=== PATIENT | male | born 1955 | race Caucasian/White ===

== ENCOUNTER 2021-03-07 11:04 | Emergency (ER) | payer BC ==
[~2021-03-07] VITALS: Ht 180 cm; Wt 105.0 kg
--- NOTE | 2021-03-07 11:52 | ED Syncope ---
General Chief Complaint: Dizziness/Syncope Stated Complaint: DIZZINESS,HTN Nursing Triage Note: PT REPORTS TO ED FOR C/O DIZZINESS THIS MORNING AROUND 0700. PT STATES HE WAS IN BED AND GOT UP WHEN HE FELT THIS WAY. PT DID TAKE BP AT HOME AND IT WAS HIGH WELL HEART RATE. AROUND 0830 BP 175/97 AND HR 111, 0953 BP 170/90 AND HR 96, AND 1040 BP 141/88 AND HR 102. PT AMB. TO ROOM 04 WITHOUT DIFFICULTY. PT WAS UNABLE TO SEE PCP TABBY CHAVARRIA. Source of Information: Patient Exam Limitations: No Limitations (KATYA ROSE APRN) History of Present Illness Date Seen by Provider: Mar 07, 2021 Time Seen by Provider: 11:50 Initial Comments To ER with dizziness onset this morning. Started when he got up out of bed. He took his blood pressure at home and found himself to be hypertensive at 175/97 and tachycardic at 111. He denied any sensation of palpitations shortness of breath chest pain. He did have some nausea when he was dizzy. He then went to work and was looking at the chart and had some recurrent dizziness. At this time he feels back to normal. No fevers chills or recent illness. [place] well yesterday. Timing/Prior Episodes: No Prior History Symptoms Prior to Episode: Lightheadedness Precipitating Factors: None Loss of Consciousness: No Loss of Consciousness Current Symptoms: No Blurred Vision, No Chest Pain, No Diaphoresis, No Dizziness, No Headache; Nausea (KATYA ROSE APRN) Allergies and Home Medications Allergies Coded Allergies: No Known Drug Allergies (Verified Allergy, Unknown, 07/29/08) Home Medications Meclizine HCl 25 Mg Tablet, 25 MG PO TID PRN for DIZZINESS Prescribed by: KATYA ROSE on 03/07/21 1322 Patient Home Medication List Home Medication List Reviewed: Yes (KATYA ROSE APRN) Review of Systems Constitutional: see HPI EENTM: see HPI Respiratory: no symptoms reported Cardiovascular: no symptoms reported Genitourinary: no symptoms reported Musculoskeletal: no symptoms reported Skin: no symptoms reported Psychiatric/Neurological: No Symptoms Reported (KATYA ROSE APRN) Past Etpjcsp-Ksyjde-Ndcpwd Hx Patient Social History Alcohol Use: Denies Use Smoking Status: Never a Smoker Recent Infectious Disease Expo: No (KATYA ROSE APRN) Past Medical History Eye Surgery Hypertension Reproductive Disorders: No Cataract (KATYA ROSE APRN) Family Medical History Heart Disease, Diabetes (KATYA ROSE APRN) Physical Exam Vital Signs Vital Signs - First Documented 03/07/21 03/07/21 11:10 13:32 Temp 37.0 Pulse 104 Resp 18 B/P (MAP) 144/87 (106) Pulse Ox 96 O2 Delivery Room Air (MICKI PRESSLEY MD) Vital Signs Capillary Refill : Less Than 3 Seconds (KATYA ROSE APRN) Height, Weight, BMI Height: 5'11.00" Weight: 241lbs. 2.0oz. 109.290333hp; 32.00 BMI Method:Stated General Appearance: No Apparent Distress, WD/WN HEENT: PERRL/EOMI, TMs Normal, Normal ENT Inspection Neck: Full Range of Motion, Normal Inspection Cardiovascular: Regular Rate, Rhythm, Normal Peripheral Pulses Respiratory: No Accessory Muscle Use, No Respiratory Distress Gastrointestinal: Normal Bowel Sounds, Non Tender, Soft Neurologic/Psychiatric: Alert, Oriented x3 Cranial Nerves: Normal Hearing, Normal Speech Skin: Normal Color, Warm/Dry (KATYA ROSE APRN) Progress/Results/Core Measures Results/Orders Lab Results Laboratory Tests Test 03/07/21 11:52 Range/Units White Blood Count 7.1 4.3-11.0 10^3/uL Red Blood Count 5.42 4.30-5.52 10^6/uL Hemoglobin 16.5 13.3-17.7 g/dL Hematocrit 49 40-54 % Mean Corpuscular Volume 90 80-99 fL Mean Corpuscular Hemoglobin 30 25-34 pg Mean Corpuscular Hemoglobin Concent 34 32-36 g/dL Red Cell Distribution Width 12.9 10.0-14.5 % Platelet Count 168 130-400 10^3/uL Mean Platelet Volume 10.6 9.0-12.2 fL Immature Granulocyte % (Auto) 0 % Neutrophils (%) (Auto) 76 H 42-75 % Lymphocytes (%) (Auto) 16 12-44 % Monocytes (%) (Auto) 6 0-12 % Eosinophils (%) (Auto) 1 0-10 % Basophils (%) (Auto) 0 0-10 % Neutrophils # (Auto) 5.4 1.8-7.8 10^3/uL Lymphocytes # (Auto) 1.2 1.0-4.0 10^3/uL Monocytes # (Auto) 0.5 0.0-1.0 10^3/uL Eosinophils # (Auto) 0.1 0.0-0.3 10^3/uL Basophils # (Auto) 0.0 0.0-0.1 10^3/uL Immature Granulocyte # (Auto) 0.0 0.0-0.1 10^3/uL D-Dimer <= 0.27 0.00-0.49 UG/ML Sodium Level 140 135-145 MMOL/L Potassium Level 3.9 3.6-5.0 MMOL/L Chloride Level 103 98-107 MMOL/L Carbon Dioxide Level 26 21-32 MMOL/L Anion Gap 11 5-14 MMOL/L Blood Urea Nitrogen 11 7-18 MG/DL Creatinine 0.91 0.60-1.30 MG/DL Estimat Glomerular Filtration Rate > 60 BUN/Creatinine Ratio 12 Glucose Level 137 H 70-105 MG/DL Calcium Level 10.0 8.5-10.1 MG/DL Corrected Calcium 9.7 8.5-10.1 MG/DL Magnesium Level 2.2 1.6-2.4 MG/DL Total Bilirubin 0.7 0.1-1.0 MG/DL Aspartate Amino Transf (AST/SGOT) 39 H 5-34 U/L Alanine Aminotransferase (ALT/SGPT) 46 0-55 U/L Alkaline Phosphatase 64 40-136 U/L Troponin I < 0.028 <0.028 NG/ML Total Protein 7.7 6.4-8.2 GM/DL Albumin 4.4 3.2-4.5 GM/DL (MICKI PRESSLEY MD) Vital Signs/I&O 03/07/21 03/07/21 11:10 13:32 Temp 37.0 Pulse 104 84 Resp 18 17 B/P (MAP) 144/87 (106) 135/96 Pulse Ox 96 O2 Delivery Room Air Room Air (MICKI PRESSLEY MD) Blood Pressure Mean: 106 Progress Progress Note : Progress Note I was physically present in the emergency department as attending physician blanca ng the care of this patient, but I was not directly involved in this patient's care. (MICKI PRESSLEY MD) Departure Communication (Admissions) 1202-I get the whole pickle is a side at this time his blood pressure is 132/87 heart rate is 88 sinus without ectopy 1321-remains asymptomatic blood pressure 135/96 heart rate 73 without ectopy. (KATYA ROSE APRN) Impression Primary Impression: Dizziness Disposition: HOME, SELF-CARE Condition: Improved Departure-Patient Inst. Decision time for Depature: 13:21 (KATYA ROSE APRN) Referrals: KIERSTEN WHITAKER DO (PCP/Family) Primary Care Physician Patient Instructions: Dizziness, Adult ED Add. Discharge Instructions: 1. Return to ER for any concerns 2. Medication as directed 3. Call your doctor for follow-up either this week or next. All discharge instructions reviewed with patient and/or family. Voiced understanding. Scripts Meclizine HCl (Meclizine HCl) 25 Mg Tablet 25 MG PO TID PRN for DIZZINESS, #14 TAB Prov: KATYA ROSE APRN 03/07/21 KATYA ROSE APRN Mar 07, 2021 11:52 MICKI PRESSLEY MD Mar 08, 2021 06:34
[2021-03-07 12:02] LABS: BASOPHILS % (AUTO) 0 % (0-10); EOSINOPHILS # (AUTO) 0.1 10^3/uL (0.0-0.3); EOSINOPHILS % (AUTO) 1 % (0-10); HEMATOCRIT 49 % (40-54); HEMOGLOBIN 16.5 g/dL (13.3-17.7); LYMPHOCYTES # (AUTO) 1.2 10^3/uL (1.0-4.0); LYMPHOCYTES % (AUTO) 16 % (12-44); MEAN CORPUSCULAR HEMOGLOBIN 30 pg (25-34); MEAN CORPUSCULAR HGB CONC 34 g/dL (32-36); MEAN CORPUSCULAR VOLUME 90 fL (80-99); MEAN PLATELET VOLUME 10.6 fL (9.0-12.2); MONOCYTES # (AUTO) 0.5 10^3/uL (0.0-1.0); MONOCYTES % (AUTO) 6 % (0-12); NEUTROPHILS # (AUTO) 5.4 10^3/uL (1.8-7.8); NEUTROPHILS % (AUTO) 76 % (42-75); PLATELET COUNT 168 10^3/uL (130-400); WHITE BLOOD COUNT 7.1 10^3/uL (4.3-11.0)
[2021-03-07 12:17] LABS: ALBUMIN 4.4 GM/DL (3.2-4.5); CHLORIDE 103 MMOL/L (98-107); POTASSIUM 3.9 MMOL/L (3.6-5.0); SODIUM 140 MMOL/L (135-145)
[2021-03-07 12:19] LABS: GLUCOSE 137 MG/DL (70-105); TOTAL PROTEIN 7.7 GM/DL (6.4-8.2)
[2021-03-07 12:20] LABS: CARBON DIOXIDE 26 MMOL/L (21-32)
[2021-03-07 12:21] LABS: BILIRUBIN,TOTAL 0.7 MG/DL (0.1-1.0)
[2021-03-07 12:23] LABS: ALKALINE PHOSPHATASE 64 U/L (40-136); CREATININE SERUM 0.91 MG/DL (0.60-1.30); GFR ESTIMATED > 60
[2021-03-07 12:24] LABS: BUN/CREATININE RATIO 12
[2021-03-07 12:26] LABS: ALANINE AMINOTRANSFERASE 46 U/L (0-55); MAGNESIUM 2.2 MG/DL (1.6-2.4)
[2021-03-07] MEDS ORDERED: MECL-149 PO (13:22)
[2021-03-07 13:32] VITALS: BP 135/96
== END 2021-03-07 13:32 | disposition home or self-care (01) ==
LOC: EDUNIT# 11:04 → ER 11:05
DX: R42 Dizziness and giddiness (principal); I10 Essential (primary) hypertension
CPT/HCPCS: 36415; 80053; 83735; 84484; 85025; 85379; 93005